=== PATIENT | male | born 1985 | race Caucasian/White ===

== ENCOUNTER 2022-06-25 07:23 | Emergency (ER) | payer MEDICAID ==
[~2022-06-25] VITALS: Ht 185.5 cm; Wt 140.6 kg
--- NOTE | 2022-06-25 07:41 | ED Cardiac General ---
History of Present Illness General Chief Complaint: Cardiac/General Problems Stated Complaint: RAPID HEART RATE / CHEST PAIN Source: patient Exam Limitations: no limitations History of Present Illness Date Seen by Provider: Jun 25, 2022 Time Seen by Provider: 07:26 Initial Comments Francia is a 36-year-old otherwise healthy individual who presents to the emergency room with a chief complaint of rapid heartbeat/palpitations and chest tightness. He states he woke up with the symptoms about 30 minutes prior to arrival. He complains of some nausea and a little shortness of breath. He is very flat in his affect. No distress whatsoever. No recent illnesses such as fevers, cough, congestion. He is not a smoker. He denies use of energy drinks or stimulants. He denies illicit drugs. He has had this episode twice before, once in January, he was treated in [facility]. He was not discharged on any medications. He states he had a recurrence in February but did not seek medical treatment. Currently rate is in the 140s. Blood pressure is 130 systolic. Oxygenation is good. EKG reveals atrial fibrillation with rapid ventricular response. He will be given a fluid bolus to start. All other review of systems reviewed and negative except as stated. 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: No ASA po BABY FORMULA WORKER: No Associated Systoms: Nausea/Vomiting, Other ("chills") Allergies and Home Medications Allergies Coded Allergies: erythromycin base (Verified Allergy, Unknown, 06/25/22) Patient Home Medication List Home Medication List Reviewed: Yes Apixaban (Eliquis) 5 Mg Tablet, 5 MG PO BID Prescribed by: FLAKO LEWIS on 06/25/22937 Diltiazem HCl (Cardizem Cd) 120 Mg Cap.er.24h, 120 MG PO DAILY Prescribed by: FLAKO LEWIS on 06/25/22937 Review of Systems Review of Systems Constitutional: see HPI, chills EENTM: No Symptoms Reported Respiratory: No Symptoms Reported Cardiovascular: Irregular Heart Rate, Palpitations Gastrointestinal: Nausea Genitourinary: No Symptoms Reported Musculoskeletal: no symptoms reported Skin: no symptoms reported Psychiatric/Neurological: No Symptoms Reported Endocrine: No Symptoms Reported All Other Systems Reviewed Negative Unless Noted: Yes Physical Exam Vital Signs Vital Signs - First Documented 06/25/22 07:29 Temp 36.2 Pulse 151 Resp 14 B/P (MAP) 149/102 (118) Pulse Ox 95 O2 Delivery Room Air Capillary Refill : Height, Weight, BMI Height: '" Weight: lbs. oz. kg; BMI Method: General Appearance: No Apparent Distress, WD/WN HEENT: PERRL/EOMI Neck: Normal Inspection Respiratory: Lungs Clear, Normal Breath Sounds, No Accessory Muscle Use, No Respiratory Distress Cardiovascular: Irregularly Irregular, Tachycardia (140's) Gastrointestinal: Non Tender, Soft Extremity: Normal Capillary Refill, No Calf Tenderness, Swelling (Some swelling noted to the left lower extremity. Nonpitting. He has a contusion to the left medial calf that is not erythematous or overtly tender. 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 II- XII Norm as Tested, Other (Flat affect) Skin: Normal Color, Warm/Dry Progress/Results/Core Measures Results/Orders Lab Results Laboratory Tests Test 06/25/22 07:35 06/25/22 07:42 Range/Units White Blood Count 6.3 4.3-11.0 10^3/uL Red Blood Count 5.51 4.30-5.52 10^6/uL Hemoglobin 15.7 13.3-17.7 g/dL Hematocrit 49 40-54 % Mean Corpuscular Volume 90 80-99 fL Mean Corpuscular Hemoglobin 29 25-34 pg Mean Corpuscular Hemoglobin Concent 32 32-36 g/dL Red Cell Distribution Width 12.6 10.0-14.5 % Platelet Count 163 130-400 10^3/uL Mean Platelet Volume 10.3 9.0-12.2 fL Immature Granulocyte % (Auto) 0 % Neutrophils (%) (Auto) 59 42-75 % Lymphocytes (%) (Auto) 29 12-44 % Monocytes (%) (Auto) 7 0-12 % Eosinophils (%) (Auto) 4 0-10 % Basophils (%) (Auto) 1 0-10 % Neutrophils # (Auto) 3.7 1.8-7.8 10^3/uL Lymphocytes # (Auto) 1.8 1.0-4.0 10^3/uL Monocytes # (Auto) 0.5 0.0-1.0 10^3/uL Eosinophils # (Auto) 0.3 0.0-0.3 10^3/uL Basophils # (Auto) 0.0 0.0-0.1 10^3/uL Immature Granulocyte # (Auto) 0.0 0.0-0.1 10^3/uL Prothrombin Time 14.6 12.2-14.7 SEC INR Comment 1.1 0.8-1.4 Activated Partial Thromboplast Time 36 H 24-35 SEC Sodium Level 141 135-145 MMOL/L Potassium Level 3.6 3.6-5.0 MMOL/L Chloride Level 106 98-107 MMOL/L Carbon Dioxide Level 24 21-32 MMOL/L Anion Gap 11 5-14 MMOL/L Blood Urea Nitrogen 15 7-18 MG/DL Creatinine 1.13 0.60-1.30 MG/DL Estimat Glomerular Filtration Rate 86 BUN/Creatinine Ratio 13 Glucose Level 97 70-105 MG/DL Calcium Level 9.1 8.5-10.1 MG/DL Corrected Calcium 8.8 8.5-10.1 MG/DL Magnesium Level 2.1 1.6-2.4 MG/DL Total Bilirubin 0.6 0.1-1.0 MG/DL Aspartate Amino Transf (AST/SGOT) 19 5-34 U/L Alanine Aminotransferase (ALT/SGPT) 23 0-55 U/L Alkaline Phosphatase 69 40-136 U/L Myoglobin 59.5 10.0-92.0 NG/ML Troponin I < 0.028 <0.028 NG/ML Total Protein 7.5 6.4-8.2 GM/DL Albumin 4.4 3.2-4.5 GM/DL Urine Opiates Screen NEGATIVE NEGATIVE Urine Oxycodone Screen NEGATIVE NEGATIVE Urine Methadone Screen NEGATIVE NEGATIVE Urine Propoxyphene Screen NEGATIVE NEGATIVE Urine Barbiturates Screen NEGATIVE NEGATIVE Ur Tricyclic Antidepressants Screen NEGATIVE NEGATIVE Urine Phencyclidine Screen NEGATIVE NEGATIVE Urine Amphetamines Screen NEGATIVE NEGATIVE Urine Methamphetamines Screen NEGATIVE NEGATIVE Urine Benzodiazepines Screen NEGATIVE NEGATIVE Urine Cocaine Screen NEGATIVE NEGATIVE Urine Cannabinoids Screen NEGATIVE NEGATIVE My Orders Orders - FLAKO LEWSI MD Ekg Tracing (06/25/22 07:30) Cbc With Automated Diff (06/25/22 07:41) Magnesium (06/25/22 07:41) Chest 1 View, Ap/Pa Only (06/25/22 07:41) Ekg Tracing (06/25/22 07:41) Comprehensive Metabolic Panel (06/25/22 07:41) Myoglobin Serum (06/25/22 07:41) Protime With Inr (06/25/22 07:41) Partial Thromboplastin Time (06/25/22 07:41) O2 (06/25/22 07:41) Monitor-Rhythm Ecg Trace Only (06/25/22 07:41) Lipid Panel (06/26/22 06:00) Ed Iv/Invasive Line Start (06/25/22 07:41) Troponin I Hugo (06/25/22 07:41) Drug Screen Stat (Urine) (06/25/22 07:41) Ns Iv 1000 Ml (Sodium Chloride 0.9%) (06/25/22 07:45) Diltiazem Injection (Cardizem Injection) (06/25/22 08:45) Ns Iv 1000 Ml (Sodium Chloride 0.9%) (06/25/22 08:45) Ekg Tracing (06/25/22 09:19) Apixaban Tablet (Eliquis Tablet) (06/25/22 09:45) Diltiazem Cd 24 Hr Capsule (Cardizem Cd (06/25/22 09:45) Diltiazem Injection (Cardizem Injection) (06/25/22 10:30) Diltiazem Drip Pre-Mix (Cardizem Drip Pr (06/25/22 11:15) Ed Admission (Communication) (06/25/22 11:41) Medications Given in ED Current Medications Medications Dose Ordered Sig/Paty Route Start Time Stop Time Status Last Admin Dose Admin Apixaban 5 mg ONCE ONCE PO 06/25/22 09:45 06/25/22 09:46 DC 06/25/22 09:52 5 MG Diltiazem HCl 10 mg ONCE ONCE IVP 06/25/22 10:30 06/25/22 10:31 DC 06/25/22 11:05 10 MG Diltiazem HCl 20 mg ONCE ONCE IVP 06/25/22 08:45 06/25/22 08:46 DC 06/25/22 08:58 20 MG Diltiazem HCl 120 mg ONCE ONCE PO 06/25/22 09:45 06/25/22 09:46 DC 10/30/22 09:52 120 MG Vital Signs/I&O 06/25/22 06/25/22 06/25/22 07:29 08:58 11:05 Temp 36.2 Pulse 151 141 141 Resp 14 B/P (MAP) 149/102 (118) 109/62 137/108 Pulse Ox 95 O2 Delivery Room Air Progress Progress Note #1: Time: 09:33 Progress Note Patient is rate controlled in the upper 80s low 90s. Blood pressure is good. Labs have been reviewed and are all within normal limits. Chest x-ray is unremarkable. Case was discussed with Dr. Odonnell who recommends Cardizem CD 120 mg now and then daily. He also recommends anticoagulation on Eliquis 5 mg twice daily. He will see the patient in 1 month. All of this has been communicated to the patient. He has no objective findings of acute coronary syndrome. He is not in pulmonary edema. No evidence of infectious pro cess/sepsis. He is not intoxicated. Progress Note #2: Time: 11:16 Progress Note Patient given an extra dose of IV Cardizem at 10 mg. His rate had climbed back up into the 120s 130s rapid ventricular response. Shortly after push patient increased to 160s. Discussed with Dr. Odonnell. We will put on cardiac stepdown unit on Cardizem drip. He will periodically dropped down into the 70s 80s but as soon as he gets up and moves around he jumped right back up to the 150s to 170s. Progress Note #3: Time: 11:46 Progress Note Went into discussed with patient admission status, he had converted from A. fib RVR in the 170s to normal sinus rhythm in the 60s and 70s. I did have him stand up to see what his heart rate and rhythm would do. He jumped up to 100 but stayed sinus tachycardia. He is asymptomatic. Will discharge to home as previously planned. Initial ECG Impression Date: Jun 25, 2022 Initial ECG Impression Time: 07:31 Initial ECG Rate: 142 Initial ECG Rhythm: A Fib/Flutter Initial ECG Impression: Atrial Fibrillation w/RVR EKG : EKG Time: : Rate: 98 Rhythm: A Fib/Flutter ECG Comparisson: Changed ECG Impression: Atrial Fibrillation Diagnostic Imaging Diagonstic Imaging: Xray Plain Films/CT/US/NM/MRI: chest Comments [facility]. [place], [place] NAME: FRANCIA REYES [facility] REC#: [id number] PT STATUS: REG ER : 1985 PHYSICIAN: FLAKO LEWIS MD ADMIT DATE: 06/25/22/ER Draft Date of Exam:06/25/22 CHEST 1 VIEW, AP/PA ONLY INDICATION: Chest pain. TECHNIQUE: Single view chest 8:03 AM. CORRELATION STUDY: None FINDINGS: Heart size is borderline enlarged. Vasculature overall within normal limits. The lungs are clear with no consolidating infiltrate. There is no significant effusion or pneumothorax. IMPRESSION: 1. Borderline heart size without failure. Dictated on workstation # [id number] Dict: 06/25/22817 Trans: 06/25/22818 [facility] [id number] Interpreted by: RIKI ABBOTT DO Electronically signed by: Critical Care Note Critical Care Start Time: 07:26 Stop Time: 11:15 Total Time (minutes) 1 hour critical care time in the evaluation and management of this patient with atrial fibrillation with rapid ventricular response. Time includes initial evaluation and management, review and interpretation of labs, EKG and x-ray. Management with Cardizem IV push x2 as well as oral Cardizem and now initiation of Cardizem drip. Time also includes discussion with cardiology. Departure Communication (Admissions) Time/Spoke to Admitting Phy: 11:40 Dr Jimenez Time/Spoke to Consulting Phy: 11:[address] Odonnell Impression Primary Impression: Atrial fibrillation with rapid ventricular response Disposition: ADMITTED INPATIENT Condition: Stable Admissions Decision to Admit Reason: Admit from ER (General) Decision to Admit/Date: Jun 25, 2022 Time/Decision to Admit Time: 11:37 Departure-Patient Inst. Decision time for Depature: 09:35 Referrals: FRANCIA ODONNELL JR, MD Patient Instructions: Atrial Fibrillation and Atrial Flutter ED Add. Discharge Instructions: Drink plenty of fluids to stay well-hydrated. Avoid caffeine, cold medications that are stimulants with phenylephrine. Watch your diet, avoid excessive salt intake. We have started you on Cardizem CD 120 mg daily. Please take this medication every day to control how fast your heart beats. You also need to be on a blood thinner. I have prescribed Eliquis. Take 5 mg twice daily with food. Do not miss a dose of this. This medication will help keep your blood thin to avoid developing blood clots in your heart that can travel to your brain and cause a stroke. Return to the emergency department for any worsening symptoms of palpitations, shortness of breath, chest pain or any other emergent concerning symptoms. Please call Dr. Odonnell, staffing assistant to schedule an appointment in 1 month. Scripts Diltiazem HCl (Cardizem Cd) 120 Mg Cap.er.24h 120 MG PO DAILY for 30 Days, #30 CAP Prov: FLAKO LEWIS MD 06/25/22 Apixaban (Eliquis) 5 Mg Tablet 5 MG PO BID, #60 TAB Prov: FLAKO LEWIS MD 06/25/22 Copy Copies To 1: FRANCIA ODONNELL JR, MD CORNELIUS, KATHRYN M MD Jun 25, 2022 07:41
[2022-06-25] MEDS ORDERED: NS IV 1000 ML 1,000 ML IV SCH ×2 (07:45→08:45)
[2022-06-25 08:02] LABS: ALBUMIN 4.4 GM/DL (3.2-4.5); POTASSIUM 3.6 MMOL/L (3.6-5.0)
[2022-06-25 08:03] LABS: BASOPHILS % (AUTO) 1 % (0-10); EOSINOPHILS # (AUTO) 0.3 10^3/uL (0.0-0.3); EOSINOPHILS % (AUTO) 4 % (0-10); HEMATOCRIT 49 % (40-54); HEMOGLOBIN 15.7 g/dL (13.3-17.7); LYMPHOCYTES # (AUTO) 1.8 10^3/uL (1.0-4.0); LYMPHOCYTES % (AUTO) 29 % (12-44); MEAN CORPUSCULAR HEMOGLOBIN 29 pg (25-34); MEAN CORPUSCULAR HGB CONC 32 g/dL (32-36); MEAN CORPUSCULAR VOLUME 90 fL (80-99); MEAN PLATELET VOLUME 10.3 fL (9.0-12.2); MONOCYTES # (AUTO) 0.5 10^3/uL (0.0-1.0); MONOCYTES % (AUTO) 7 % (0-12); NEUTROPHILS # (AUTO) 3.7 10^3/uL (1.8-7.8); NEUTROPHILS % (AUTO) 59 % (42-75); PLATELET COUNT 163 10^3/uL (130-400); WHITE BLOOD COUNT 6.3 10^3/uL (4.3-11.0)
[2022-06-25 08:04] LABS: CALCIUM 9.1 MG/DL (8.5-10.1)
[2022-06-25 08:05] LABS: TOTAL PROTEIN 7.5 GM/DL (6.4-8.2)
[2022-06-25 08:07] LABS: AMPHETAMINE SCREEN, URINE NEGATIVE (NEGATIVE); BARBITURATE SCREEN URINE NEGATIVE (NEGATIVE); BENZODIAZEPINES SCREEN URINE NEGATIVE (NEGATIVE); CANNABINOID SCREEN, URINE NEGATIVE (NEGATIVE); COCAINE SCREEN URINE NEGATIVE (NEGATIVE); METHADONE STAT NEGATIVE (NEGATIVE); OPIATE SCREEN URINE NEGATIVE (NEGATIVE); OXYCODONE STAT NEGATIVE (NEGATIVE); PROPOXYPHENE STAT NEGATIVE (NEGATIVE); TRICYCLIC ANTIDEPRESSANTS SCRE NEGATIVE (NEGATIVE)
[2022-06-25 08:07] LABS: BILIRUBIN,TOTAL 0.6 MG/DL (0.1-1.0)
[2022-06-25 08:08] LABS: CREATININE SERUM 1.13 MG/DL (0.60-1.30); INR 1.1 (0.8-1.4); PROTHROMBIN TIME PATIENT 14.6 SEC (12.2-14.7)
[2022-06-25 08:11] LABS: MAGNESIUM 2.1 MG/DL (1.6-2.4)
--- NOTE | 2022-06-25 08:19 | Diagnostic Imaging Report ---
INDICATION: Chest pain. TECHNIQUE: Single view chest 8:03 AM. CORRELATION STUDY: None FINDINGS: Heart size is borderline enlarged. Vasculature overall within normal limits. The lungs are clear with no consolidating infiltrate. There is no significant effusion or pneumothorax. IMPRESSION: 1. Borderline heart size without failure. Dictated by: Dictated on workstation # [id number]
[2022-06-25] MEDS ORDERED: DILT120C82 PO (09:38)
[2022-06-25] MEDS ORDERED: APIX5TAB PO (09:38)
[2022-06-25] MEDS ORDERED: APIXABAN 5 MG (ELIQUIS) TABLET PO ONE (09:45)
[2022-06-25] MEDS ORDERED: dilTIAZem120 MG (CARDIZEM CD) CAP PO ONE (09:45)
[2022-06-25] MEDS ORDERED: dilTIAZem DRIP PRE-MIX 125 ML IV SCH (11:15)
--- NOTE | 2022-06-25 12:03 | Tele-ICU Consult ---
History of Present Illness History of Present Illness Date Seen by Provider: Jun 25, 2022 Time Seen by Provider: 11:45 Date of Admission This virtual visit was conducted using real time audio/video. Thank you for asking us to see this patient for afib/RVR Recent events: nDeveloped chest discomfort and afib PMH:2 previous afib episodes SH: smoking history: N FH: Non-contributory ROS: as in HPI. PE: VSS. O2 sat 95% on RA HEENT: No obvious masses, adenopathy or JVD. Chest: clear to auscultation. CV: Irreg. S1 S2 No murmur or added sounds. Abd: Non-tender. Bowel sounds Y. : Unremarkable. [place] N. 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 No obvious focal findings. Extremities: edema. Capillary refill < 3 seconds. Skin: unremarkable. Results: Labs normal, tox screen negative CXR: Clear. Available chart/ vitals / labs / images reviewed. Video assessment done using teleICU camera, rest of exam as per RN. A/P: Critical Care: critically ill patient. 3rd occurrence of PAF/RVR. Cont. Cardizem, IVF, Eliquis Discussed with SERAFIN Forte. Asked RN to reach out to eICU if any questions or concerns later. Time spent with patient/coordination of care with other health professionals (mins): 25 Allergies and Home Medications Allergies Coded Allergies: erythromycin base (Verified Allergy, Unknown, 06/25/22) Home Medications Apixaban 5 Mg Tablet, 5 MG PO BID Prescribed by: FLAKO LEWIS on 06/25/22 09 Diltiazem HCl 120 Mg Cap.er.24h, 120 MG PO DAILY Prescribed by: FLAKO LEWIS on 06/25/22 09 Past Medical/Social/Family Hx Patient Social History Tobacco Use?: No Use of E-Cig and/or Vaping dev: No Substance use?: No Alcohol Use?: No Pt stated abuse/neglect: No Immunizations Up To Date Tetanus Booster (TDap): Unknown Current Status Advance Directives: No Primary Language: Greenlandic Preferred Spoken Language: Greenlandic Review of Systems Constitutional: no symptoms reported Focused Exam Height, Weight, BMI Height: '" Weight: lbs. oz. kg; 40.00 BMI Method: Peripheral Pulses: 2+ Dorsalis Pedis (R), 2+ Left Dors-Pedis (L) Skin: normal color Exam Exam Patient acknowledged, consented, and participated in this virtual visit which was conducted using real time audio/video Vital Signs Date Time Temp Pulse Resp B/P (MAP) Pulse Ox O2 Delivery O2 Flow Rate FiO2 06/25/22 11:05 141 137/108 06/25/22 08:58 141 109/62 06/25/22 07:29 36.2 151 14 149/102 (118) 95 Room Air Height & Weight Height: '" Weight: lbs. oz. kg; 40.00 BMI Method: General Appearance: No Apparent Distress, WD/WN HEENT: PERRL/EOMI Neck: Normal Inspection Respiratory: Lungs Clear, Normal Breath Sounds, No Accessory Muscle Use, No Respiratory Distress Cardiovascular: Irregularly Irregular, Tachycardia (140's) Capillary Refill: Less Than 3 Seconds Peripheral Pulses: 2+ Dorsalis Pedis (R), 2+ Left Dors-Pedis (L) (See free text) Extremity: Normal Capillary Refill, No Calf Tenderness, Swelling (Some swelling noted to the left lower extremity. Nonpitting. He has a contusion to the left medial calf that is not erythematous or overtly tender. 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 Critical Care: Critically Ill Patient LAVERNE MONTEJO MD Jun 25, 2022 12:03
[2022-06-25 12:10] VITALS: BP 138/96
== END 2022-06-25 12:10 | disposition other institution (70) ==
LOC: EDUNIT# 07:23 → ER 07:24 → ICU 11:42 → UNDOADMOB 11:42
DX: I48.20 Chronic atrial fibrillation, unspecified (principal)
CPT/HCPCS: 36415; 71045; 80053; 80306; 83735; 83874; 84484; 85025; 85610; 85730; 93005; 93041

== ENCOUNTER → 2022-07-17 | Outpatient (CLI) | payer MEDICAID ==
[~2022-07-17] MED LIST: APIX5TAB PO; DILT120C82 PO
== END ==
LOC: CARD 08:24
PROVIDERS: ATTEND Internal Medicine Cardiovascular Disease
DX: I51.7 Cardiomegaly (principal)
CPT/HCPCS: 93306

== ENCOUNTER 2022-08-13 20:42 | Emergency (ER) | payer MEDICAID ==
[~2022-08-13] VITALS: Ht 183 cm; Wt 140.6 kg
[2022-08-13 21:02] LABS: BASOPHILS # (AUTO) 0.1 10^3/uL (0.0-0.1); BASOPHILS % (AUTO) 1 % (0-10); EOSINOPHILS # (AUTO) 0.2 10^3/uL (0.0-0.3); EOSINOPHILS % (AUTO) 4 % (0-10); HEMATOCRIT 44 % (40-54); HEMOGLOBIN 14.3 g/dL (13.3-17.7); LYMPHOCYTES # (AUTO) 1.7 10^3/uL (1.0-4.0); LYMPHOCYTES % (AUTO) 27 % (12-44); MEAN CORPUSCULAR HEMOGLOBIN 29 pg (25-34); MEAN CORPUSCULAR HGB CONC 33 g/dL (32-36); MEAN CORPUSCULAR VOLUME 87 fL (80-99); MEAN PLATELET VOLUME 9.7 fL (9.0-12.2); MONOCYTES # (AUTO) 0.5 10^3/uL (0.0-1.0); MONOCYTES % (AUTO) 8 % (0-12); NEUTROPHILS # (AUTO) 3.9 10^3/uL (1.8-7.8); NEUTROPHILS % (AUTO) 61 % (42-75); PLATELET COUNT 177 10^3/uL (130-400); WHITE BLOOD COUNT 6.4 10^3/uL (4.3-11.0)
[2022-08-13 21:14] LABS: BILIRUBIN,URINE NEGATIVE (NEGATIVE); CLARITY,URINE CLEAR; COLOR,URINE YELLOW; GLUCOSE, URINE (UA) NEGATIVE (NEGATIVE); KETONES,URINE NEGATIVE (NEGATIVE); LEUKOCYTE ESTERASE ,URINE NEGATIVE (NEGATIVE); NITRITE,URINE NEGATIVE (NEGATIVE); PH,URINE 5.5 (5-9); PROTEIN,URINE NEGATIVE (NEGATIVE)
--- NOTE | 2022-08-13 21:18 | Diagnostic Imaging Report ---
CHEST 1 VIEW, AP/PA ONLY Indication: Stroke symptoms, chest pain Comparison: 06/25/2022 Findings: No focal airspace disease in the visualized lungs. No pleural effusion or pneumothorax. Normal cardiomediastinal silhouette. Impression: 1. No acute cardiopulmonary process by portable radiography. Dictated by: Dictated on workstation # [id number]
[2022-08-13 21:19] LABS: ALBUMIN 4.2 GM/DL (3.2-4.5); CHLORIDE 106 MMOL/L (98-107); POTASSIUM 3.7 MMOL/L (3.6-5.0); SODIUM 140 MMOL/L (135-145)
[2022-08-13 21:20] LABS: CALCIUM 8.9 MG/DL (8.5-10.1)
[2022-08-13 21:21] LABS: GLUCOSE 90 MG/DL (70-105)
[2022-08-13 21:22] LABS: TOTAL PROTEIN 6.9 GM/DL (6.4-8.2)
[2022-08-13 21:22] LABS: BACTERIA,URINE FEW /HPF; RBC,URINE RARE /HPF
--- NOTE | 2022-08-13 21:22 | ED Neurological Problem ---
General Chief Complaint: Neuro-Stroke Like Symptoms Stated Complaint: RIGHT SIDE FACIAL DROOPING/SLURRED SPEECH Nursing Triage Note: c/o right sided facial drooping since sunday am. reports hx afib. states possible fever, right ear pain since sunday. denies other complaints. Source: patient, spouse Exam Limitations: other (BOTH PT AND ARE VERY LIMITED HISTORIANS ABOUT PMH) Allergies and Home Medications Allergies Coded Allergies: erythromycin base (Verified Allergy, Unknown, 06/25/22) Patient Home Medication List Apixaban (Eliquis) 5 Mg Tablet, 5 MG PO BID Prescribed by: FLAKO LEWIS on 06/25/22937 Diltiazem HCl (Cardizem Cd) 120 Mg Cap.er.24h, 120 MG PO DAILY Prescribed by: FLAKO LEWIS on 06/25/22937 Past Nvypfoo-Hgguyk-Skwhzl Hx Patient Social History Tobacco Use?: No Substance use?: No Alcohol Use?: Yes Alcohol Frequency: Once in a while Pt feels they are or have been: No Immunizations Up To Date First/Initial COVID19 Vaccinat: x2 Past Medical History Surgery/Hospitalization HX: afib Physical Exam Vital Signs Vital Signs - First Documented 08/13/22 20:48 Temp 35.8 Pulse 66 Resp 16 B/P (MAP) 158/108 (125) Pulse Ox 98 O2 Delivery Room Air Capillary Refill : Less Than 3 Seconds Height, Weight, BMI Height: '" Weight: lbs. oz. kg; 41.00 BMI Method: Stroke NIH Stroke Scale Assessment Level of Consciousness: 0=Alert (0), Level of Consciousness-Questions: 0=Answers both month/age (0), LOC Commands: 0=Performs both tasks (0), Visual Winter: 0=No visual loss (0), Facial Movement (Facial Paresis): 2=Partial paralysis (2), Motor Function-Arms Right: 0=No drift (0), Motor Function-Arms Left: 0=No drift (0), Motor Function-Legs Right: 0=No drift (0), Motor Function-Legs Left: 0=No drift (0), Limb Ataxia: 0=Absent (0), Sensory: 0=Normal:no loss (0), Best Language: 0=No aphasia (0), Dysarthria: 0=Normal (0), Extinction & Inattention: 0=No abnormality (0), Total: Progress/Results/Core Measures Results/Orders Lab Results Laboratory Tests Test 08/13/22 20:55 08/13/22 21:01 08/13/22 21:02 08/13/22 21:03 Range/Units White Blood Count 6.4 4.3-11.0 10^3/uL Red Blood Count 5.00 4.30-5.52 10^6/uL Hemoglobin 14.3 13.3-17.7 g/dL Hematocrit 44 40-54 % Mean Corpuscular Volume 87 80-99 fL Mean Corpuscular Hemoglobin 29 25-34 pg Mean Corpuscular Hemoglobin Concent 33 32-36 g/dL Red Cell Distribution Width 12.4 10.0-14.5 % Platelet Count 177 130-400 10^3/uL Mean Platelet Volume 9.7 9.0-12.2 fL Immature Granulocyte % (Auto) 0 % Neutrophils (%) (Auto) 61 42-75 % Lymphocytes (%) (Auto) 27 12-44 % Monocytes (%) (Auto) 8 0-12 % Eosinophils (%) (Auto) 4 0-10 % Basophils (%) (Auto) 1 0-10 % Neutrophils # (Auto) 3.9 1.8-7.8 10^3/uL Lymphocytes # (Auto) 1.7 1.0-4.0 10^3/uL Monocytes # (Auto) 0.5 0.0-1.0 10^3/uL Eosinophils # (Auto) 0.2 0.0-0.3 10^3/uL Basophils # (Auto) 0.1 0.0-0.1 10^3/uL Immature Granulocyte # (Auto) 0.0 0.0-0.1 10^3/uL Prothrombin Time 15.1 H 12.2-14.7 SEC INR Comment 1.1 0.8-1.4 Activated Partial Thromboplast Time 37 H 24-35 SEC D-Dimer <= 0.27 0.00-0.49 UG/ML Sodium Level 140 135-145 MMOL/L Potassium Level 3.7 3.6-5.0 MMOL/L Chloride Level 106 98-107 MMOL/L Carbon Dioxide Level 25 21-32 MMOL/L Anion Gap 9 5-14 MMOL/L Blood Urea Nitrogen 18 7-18 MG/DL Creatinine 1.00 0.60-1.30 MG/DL Estimat Glomerular Filtration Rate 100 BUN/Creatinine Ratio 18 Glucose Level 90 70-105 MG/DL Calcium Level 8.9 8.5-10.1 MG/DL Corrected Calcium 8.7 8.5-10.1 MG/DL Total Bilirubin 0.6 0.1-1.0 MG/DL Aspartate Amino Transf (AST/SGOT) 20 5-34 U/L Alanine Aminotransferase (ALT/SGPT) 21 0-55 U/L Alkaline Phosphatase 54 40-136 U/L Troponin I < 0.028 <0.028 NG/ML C-Reactive Protein High Sensitivity 0.34 0.00-0.50 MG/DL Total Protein 6.9 6.4-8.2 GM/DL Albumin 4.2 3.2-4.5 GM/DL Procalcitonin 0.02 <0.10 NG/ML Glucometer 98 70-110 MG/DL Influenza Type A (RT-PCR) Not Detected Not Detecte Influenza Type B (RT-PCR) Not Detected Not Detecte SARS-CoV-2 RNA (RT-PCR) Not Detected Not Detecte Erythrocyte Sedimentation Rate 4 0-15 MM/HR Test 08/13/22 21:09 Range/Units Urine Color YELLOW Urine Clarity CLEAR Urine pH 5.5 5-9 Urine Specific [place] >=1.030 1.016-1.022 Urine Protein NEGATIVE NEGATIVE Urine Glucose (UA) NEGATIVE NEGATIVE Urine Ketones NEGATIVE NEGATIVE Urine Nitrite NEGATIVE NEGATIVE Urine Bilirubin NEGATIVE NEGATIVE Urine Urobilinogen 0.2 < = 1.0 MG/DL Urine Leukocyte Esterase NEGATIVE NEGATIVE Urine RBC (Auto) TRACE-I H NEGATIVE Urine RBC RARE /HPF Urine WBC NONE /HPF Urine Squamous Epithelial Cells 2-5 /HPF Urine Crystals NONE /LPF Urine Bacteria FEW H /HPF Urine Casts NONE /LPF Urine Mucus MODERATE H /LPF Urine Culture Indicated YES My Orders Orders - CIARA SHEPPARD DO Cbc With Automated Diff (08/13/22 20:52) Protime With Inr (08/13/22 20:52) Partial Thromboplastin Time (08/13/22 20:52) Comprehensive Metabolic Panel (08/13/22 20:52) Fibrin Degradation Products (08/13/22 20:52) Troponin I [place] (08/13/22 20:52) Ua Culture If Indicated (08/13/22 20:52) Chest 1 View, Ap/Pa Only (08/13/22 20:52) Ekg Tracing (08/13/22 20:52) Nothing By Mouth (08/14/22 Breakfast) Accucheck Stat ONCE (08/13/22 20:52) Ed Iv/Invasive Line Start (08/13/22 20:52) Ed Iv/Invasive Line Start (08/13/22 20:52) Vital Signs Stroke Patient Q15M (08/13/22 20:52) Ct Head Wo-R/O Stroke (08/13/22 20:52) O2 (08/13/22 20:52) Intake & Output 06,14,22 (08/13/22 20:52) Monitor-Rhythm Ecg Trace Only (08/13/22 20:52) Dysphagia Screening Tool Q10MX1 (08/13/22 20:52) Lipid Panel (08/14/22 06:00) Procalcitonin (Pct) (08/13/22 21:03) Hs C Reactive Protein (08/13/22 21:03) Erythrocyte Sedimentation Rate (08/13/22 21:03) Covid 19 Inhouse Test (08/13/22 21:03) Influenza A And B By Pcr (08/13/22 21:03) Isolation Central Supply Req (08/13/22 21:03) Urine Culture (08/13/22 21:09) Ct Head Perfusion W/ Contrast (08/13/22 21:39) Ct Angio Head/Neck (08/13/22 21:39) Iohexol Injection (Omnipaque 350 Mg/Ml 1 (08/13/22 22:00) Received Contrast (Hold Metformin- Contr (08/13/22 22:00) Ns (Ivpb) (Sodium Chloride 0.9% Ivpb Bag (08/13/22 22:00) Iohexol Injection (Omnipaque 350 Mg/Ml 1 (08/13/22 22:00) Received Contrast (Hold Metformin- Contr (08/13/22 22:00) Ns (Ivpb) (Sodium Chloride 0.9% Ivpb Bag (08/13/22 22:00) Medications Given in ED Current Medications Medications Dose Ordered Sig/Paty Route Start Time Stop Time Status Last Admin Dose Admin Iohexol 100 ml ONCE ONCE IV 08/13/22 22:00 08/13/22 22:01 DC 08/13/22 21:52 45 ML Iohexol 100 ml ONCE ONCE IV 08/13/22 22:00 08/13/22 22:01 DC 08/13/22 21:52 75 ML Sodium Chloride 100 ml ONCE ONCE IV 08/13/22 22:00 08/13/22 22:01 DC 08/13/22 21:52 80 ML Sodium Chloride 100 ml ONCE ONCE IV 08/13/22 22:00 08/13/22 22:01 DC 08/13/22 21:52 80 ML Vital Signs/I&O 08/13/22 20:48 Temp 35.8 Pulse 66 Resp 16 B/P (MAP) 158/108 (125) Pulse Ox 98 O2 Delivery Room Air Blood Pressure Mean: 125 FSBG Bedside Testing Finger Stick Blood Glucose: 98 Diagnostic Imaging Comments CXR--PER RADIOLOGIST REPORT AT 2120 Findings: No focal airspace disease in the visualized lungs. No pleural effusion or pneumothorax. Normal cardiomediastinal silhouette. Impression: 1. No acute cardiopulmonary process by portable radiography. CT HEAD--PER RADIOLOGIST REPORT AT 2138 COMPARISON: None available. FINDINGS: No intracranial hyperdense hemorrhage or space-occupying mass. No hydrocephalus or midline shift. Bruner-white matter differentiation is well-preserved. No hyperdense vessel sign. Basilar cisterns are widely patent. No skull fracture. Mucosal thickening in the ethmoid sinuses. Mucosal retention cyst in the left maxillary sinus. IMPRESSION: No acute intracranial hemorrhage or features of large territorial infarct. Reviewed: Reviewed by Me Departure Impression Primary Impression: RIGHT FACIAL DROOP--SUSPECTED MARIN'S PALSY Additional Impression: History of atrial fibrillation Disposition: HOME, SELF-CARE Condition: Stable Departure-Patient Inst. Decision time for Depature: 22:39 Referrals: [facility] Patient Instructions: Marin's Palsy (DC) Add. Discharge Instructions: HOME, REST LOTS OF CLEAR LIQUIDS USE ARTIFICIAL TEARS TO YOUR EYE SEVERAL TIMES A DAY OVER THE COUNTER MEDICATIONS FOR COUGH AND CONGESTION TYLENOL AND MOTRIN NEEDED FOR PAIN OR FEVER FOLLOW UP WITH [facility] IN 1-2 DAYS FOR FURTHER CARE All discharge instructions reviewed with patient and/or family. Voiced understanding. Scripts Prednisone (Prednisone) 20 Mg Tab 40 MG PO DAILY, #6 TAB 0 Refills Prov: CIARA SHEPPARD DO 08/13/22 Valacyclovir HCl (Valtrex) 1,000 Mg Tablet 1000 MG PO TIDAC, #30 TAB Prov: CIARA SHEPPARD DO 08/13/22 CIARA SHEPPARD DO Aug 13, 2022 21:22
[2022-08-13 21:23] LABS: BILIRUBIN,TOTAL 0.6 MG/DL (0.1-1.0); CARBON DIOXIDE 25 MMOL/L (21-32)
[2022-08-13 21:25] LABS: ALKALINE PHOSPHATASE 54 U/L (40-136); GFR ESTIMATED 100
[2022-08-13 21:26] LABS: BUN/CREATININE RATIO 18
[2022-08-13 21:28] LABS: ALANINE AMINOTRANSFERASE 21 U/L (0-55)
--- NOTE | 2022-08-13 21:34 | Diagnostic Imaging Report ---
PROCEDURE: CT head w/o r/o stroke. TECHNIQUE: Multiple contiguous axial images were obtained through the brain without the use of intravenous contrast. Auto Exposure Controls were utilized during the CT exam to meet ALARA standards for radiation dose reduction. INDICATION: Right-sided weakness, slurred speech and facial droop. COMPARISON: None available. FINDINGS: No intracranial hyperdense hemorrhage or space-occupying mass. No hydrocephalus or midline shift. Bruner-white matter differentiation is well-preserved. No hyperdense vessel sign. Basilar cisterns are widely patent. No skull fracture. Mucosal thickening in the ethmoid sinuses. Mucosal retention cyst in the left maxillary sinus. IMPRESSION: No acute intracranial hemorrhage or features of large territorial infarct. Dictated by: Dictated on workstation # [id number]
[2022-08-13 21:48] LABS: FIBRIN DEGRADATION PRODUCTS <= 0.27 UG/ML (0.00-0.49); INR 1.1 (0.8-1.4); PARTIAL THROMBOPLASTIN TIME 37 SEC (24-35); PROTHROMBIN TIME PATIENT 15.1 SEC (12.2-14.7)
[2022-08-13] MEDS ORDERED: NS 100 ML (IVPB) BAG IV ONE ×2 (22:00)
[2022-08-13] MEDS ORDERED: IOHEXOL 350 MG/ML 100 ML (OMNIPAQUE 350) VIAL IV ONE ×2 (22:00)
[2022-08-13] MEDS ORDERED: HOLD METFORMIN - RECEIVED CONTRAST 20 ML VIAL IV SCH ×2 (22:00)
--- NOTE | 2022-08-13 22:02 | Diagnostic Imaging Report ---
CT Head perfusion w/contrast INDICATION: Facial droop. COMPARISON: None available. TECHNIQUE: CT perfusion imaging of the head. FINDINGS: No motion is detected. The software correctly selected arterial and venous structures. There are no areas of diminished cerebral blood volume or cerebral blood perfusion. The mean transit time and time to maximal perfusion are not elevated. IMPRESSION: No features of ischemia by perfusion imaging. Dictated by: Dictated on workstation # [id number]
[2022-08-13] MEDS ORDERED: VALA10004 PO (22:41)
[2022-08-13] MEDS ORDERED: PRD20T PO (22:41)
[2022-08-13] MEDS ORDERED: predniSONE 20 MG TAB PO ONE (22:45)
[2022-08-13] MEDS ORDERED: VALACYCLOVIR 500 MG TAB (VALTREX) PO SCH (22:45)
[2022-08-13 22:54] VITALS: BP 164/90
--- NOTE | 2022-08-14 09:01 | Diagnostic Imaging Report ---
CLINICAL INDICATION: Patient with right-sided facial drooping since [place] AM. Patient reports atrial fibrillation, possible fever, and right ear pain since [place]. EXAMS: 1: Head CT with and without IV contrast. Auto Exposure Controls were utilized during the CT exam to meet ALARA standards for radiation dose reduction. 2: CT angiogram of the head and neck performed with 100 cc of Omnipaque 350 IV contrast. Sagittal and coronal MIP reformations were created for better visualization of vascular anatomy. CT angiogram was post-processed using RAPID LVO detection to include quantitative measurements of cerebral blood flow and automated results notification to the stroke and/or neurointerventional team. COMPARISON: Head CT without contrast dated 08/13/2022. FINDINGS: HEAD CT: Stable appearance of the head CT with no interval acute intracranial process. There is no abnormal IV contrast enhancement. There is no brain herniation or midline shift. There is no intracranial hemorrhage. There is no hydrocephalus. The remainder of this exam shows no significant interval change compared to the prior study of comparison. CT ANGIOGRAM: There is limited contrast within the neck vascular structures. Patient body habitus and streak artifact limit evaluation of the aortic arch and proximal great vessels. Three-vessel aortic arch is seen. The bilateral subclavian arteries and brachiocephalic arteries are patent. The bilateral common carotid arteries, bilateral ECA, and bilateral cervical ICA are patent. Petrous, cavernous, and supraclinoid ICA are patent. The LILIAN and distal branches are patent. The bilateral ACAs and distal branches are patent. The proximal cervical left vertebral artery is obscured by streak artifact. The bilateral cervical vertebral arteries are patent as visualized. The intradural vertebral arteries are patent. The left PICA is patent. Suspected right AICA/PICA. The basilar and superior cerebellar arteries are patent. The bilateral third grade teacher and distal branches are patent. The dural venous sinuses are patent. The visualized upper lung rao are clear. Neck soft tissue structures show no significant abnormality. Cervical spine shows no significant abnormality. IMPRESSION: 1: Stable CT scan of the brain with no interval acute intracranial process. 2: CT angiogram of the [place] and neck vascular structures shows no large vessel occlusion or significant stenosis. I agree with the [employer] report. Dictated by: Dictated on workstation # [id number]
== END 2022-08-13 22:58 | disposition home or self-care (01) ==
LOC: EDUNIT# 20:42 → ER 20:45
DX: R29.810 Facial weakness (principal); Z86.79 Personal history of other diseases of the circulatory system; Z20.822 Contact with and (suspected) exposure to COVID-19
CPT/HCPCS: 0042T; 70450; 70496; 70498; 71045; 80053; 81000; 82947; 84145; 84484; 85025; 85379; 85610; 85652; 85730; 86141; 87088; 87636; 93005; 93041; 99284; 36415

== ENCOUNTER 2022-09-01 20:22 | Outpatient (CLI) | payer MEDICAID ==
[~2022-09-01 20:22] MED LIST changes: +PRD20T PO; +VALA10004 PO
== END 2022-09-02 06:35 | disposition home or self-care (01) ==
LOC: SLEEP 20:22
PROVIDERS: ATTEND Nurse Practitioner Family
DX: G47.33 Obstructive sleep apnea (adult) (pediatric) (principal); G47.10 Hypersomnia, unspecified; G47.36 Sleep related hypoventilation in conditions classified elsewhere
CPT/HCPCS: 95810

== ENCOUNTER → 2022-09-15 | Outpatient (CLI) | payer MEDICAID | LOC: RAD 11:55 | PROVIDERS: ATTEND Internal Medicine Cardiovascular Disease | DX: G51.0 Bell's palsy (principal); Z53.8 Procedure and treatment not carried out for other reasons ==

== ENCOUNTER 2022-10-11 18:23 | Emergency (ER) | payer OTHER ==
[~2022-10-11] VITALS: Ht 182 cm; Wt 142.0 kg
[2022-10-11 18:48] LABS: BASOPHILS % (AUTO) 1 % (0-10); EOSINOPHILS # (AUTO) 0.2 10^3/uL (0.0-0.3); EOSINOPHILS % (AUTO) 3 % (0-10); HEMATOCRIT 47 % (40-54); HEMOGLOBIN 15.3 g/dL (13.3-17.7); LYMPHOCYTES # (AUTO) 1.8 10^3/uL (1.0-4.0); LYMPHOCYTES % (AUTO) 23 % (12-44); MEAN CORPUSCULAR HEMOGLOBIN 29 pg (25-34); MEAN CORPUSCULAR HGB CONC 33 g/dL (32-36); MEAN CORPUSCULAR VOLUME 87 fL (80-99); MEAN PLATELET VOLUME 10.3 fL (9.0-12.2); MONOCYTES # (AUTO) 0.5 10^3/uL (0.0-1.0); MONOCYTES % (AUTO) 6 % (0-12); NEUTROPHILS # (AUTO) 5.2 10^3/uL (1.8-7.8); NEUTROPHILS % (AUTO) 67 % (42-75); PLATELET COUNT 179 10^3/uL (130-400); WHITE BLOOD COUNT 7.8 10^3/uL (4.3-11.0)
--- NOTE | 2022-10-11 18:52 | ED General ---
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 SPACE SCIENCES DIRECTOR TOLD PT HE MAY HAVE BEEN EXPOSED. PT STATES FEELING NAUSEATED, MUNOZ, DIZZINESS.PT STATES IS TAKING A LITTLE LONGER TO ANSWER QUESTIONS THAN NORMAL Source of Information: Patient Exam Limitations: No Limitations History of Present Illness Date Seen by Provider: Oct 11, 2022 Time Seen by Provider: 18:39 Initial Comments 36-year-old male presents to the ED from the urgent care for carbon monoxide exposure. 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 States he was exposed for approximately 10 hours, from 7 AM to 5 PM. Speech is slowed and slurred. He states he was having a headache, but is better now. Reports shortness of air, nausea, dizziness, weakness. Denies chest pain, abdominal pain, vomiting, visual changes. Past medical history includes A-fib, currently on Cardizem. Allergies and Home Medications Allergies Coded Allergies: erythromycin base (Verified Allergy, Unknown, 06/25/22) Patient Home Medication List Home Medication List Reviewed: Yes Apixaban (Eliquis) 5 Mg Tablet, 5 MG PO BID Prescribed by: FLAKO LEWIS on 06/25/22 0938 Diltiazem HCl (Cardizem Cd) 120 Mg Cap.er.24h, 120 MG PO DAILY Prescribed by: FLAKO LEWIS on 06/25/22 0938 Prednisone (Prednisone) 20 Mg Tab, 40 MG PO DAILY Prescribed by: CIARA SHEPPARD on 08/13/222240 Valacyclovir HCl (Valtrex) 1,000 Mg Tablet, 1,000 MG PO TIDAC Prescribed by: CIARA SHEPPARD on 08/13/22 224 Review of Systems Review of Systems Constitutional: see HPI Past Cbdkflb-Siwhoq-Ygktdg Hx Patient Social History Tobacco Use?: No Substance use?: No Alcohol Use?: Yes Alcohol type: Beer Alcohol Frequency: Once in a while Pt feels they are or have been: No Immunizations Up To Date Influenza Vaccine Up-to-Date: No; Not Current First/Initial COVID19 Vaccinat: x2 Second COVID19 Vaccination Dimitri: x2 Third COVID19 Vaccination Date: x2 Past Medical History Surgery/Hospitalization HX: afib, Surgeries: No Respiratory: No Cardiac: Yes Atrial Fibrillation Neurological: No Genitourinary: No Gastrointestinal: No Musculoskeletal: No Endocrine: No HEENT: No Cancer: No Psychosocial: No Integumentary: No Blood Disorders: No Physical Exam Vital Signs Vital Signs - First Documented 10/11/22 10/11/22 18:30 18:35 Pulse 71 Resp 18 B/P (MAP) 149/94 (112) Pulse Ox 99 O2 Delivery OxyMask O2 Flow Rate 10.00 Capillary Refill : Less Than 3 Seconds Height, Weight, BMI Height: '" Weight: lbs. oz. kg; 42.00 BMI Method: General Appearance: No Apparent Distress, WD/WN Neck: Normal Inspection, Supple Respiratory: Lungs Clear, Normal Breath Sounds, No Accessory Muscle Use, No Respiratory Distress Cardiovascular: Regular Rate, Rhythm, No Edema, No Gallop, No JVD, No Murmur Extremity: Normal Inspection, Normal Range of Motion Neurologic/Psychiatric: Alert, Oriented x3, Other (Slowed speech) Skin: Normal Color, Warm/Dry Focused Exam Lactate Level 10/11/22 18:44: Lactic Acid Level 0.88 Lactic Acid Level Laboratory Tests Test 10/11/22 18:44 Lactic Acid Level 0.88 MMOL/L (0.50-2.00) Progress/Results/Core Measures Suspected Sepsis SIRS Temperature: Pulse: 71 Respiratory Rate: 18 Laboratory Tests 10/11/22 18:44: White Blood Count 7.8 Blood Pressure 149 /94 Mean: 112 10/11/22 18:44: Lactic Acid Level 0.88 Laboratory Tests 10/11/22 18:44: Creatinine 1.00, Platelet Count 179, Total Bilirubin 0.8 Results/Orders Lab Results Laboratory Tests Test 10/11/22 18:44 10/11/22 19:05 10/11/22 21:25 10/11/22 21:32 Range/Units White Blood Count 7.8 4.3-11.0 10^3/uL Red Blood Count 5.32 4.30-5.52 10^6/uL Hemoglobin 15.3 13.3-17.7 g/dL Hematocrit 47 40-54 % Mean Corpuscular Volume 87 80-99 fL Mean Corpuscular Hemoglobin 29 25-34 pg Mean Corpuscular Hemoglobin Concent 33 32-36 g/dL Red Cell Distribution Width 13.0 10.0-14.5 % Platelet Count 179 130-400 10^3/uL Mean Platelet Volume 10.3 9.0-12.2 fL Immature Granulocyte % (Auto) 0 % Neutrophils (%) (Auto) 67 42-75 % Lymphocytes (%) (Auto) 23 12-44 % Monocytes (%) (Auto) 6 0-12 % Eosinophils (%) (Auto) 3 0-10 % Basophils (%) (Auto) 1 0-10 % Neutrophils # (Auto) 5.2 1.8-7.8 10^3/uL Lymphocytes # (Auto) 1.8 1.0-4.0 10^3/uL Monocytes # (Auto) 0.5 0.0-1.0 10^3/uL Eosinophils # (Auto) 0.2 0.0-0.3 10^3/uL Basophils # (Auto) 0.0 0.0-0.1 10^3/uL Immature Granulocyte # (Auto) 0.0 0.0-0.1 10^3/uL Carboxyhemoglobin 12.5 H 9.5 H 0.5-2.5 % Sodium Level 141 135-145 MMOL/L Potassium Level 3.9 3.6-5.0 MMOL/L Chloride Level 105 98-107 MMOL/L Carbon Dioxide Level 22 21-32 MMOL/L Anion Gap 14 5-14 MMOL/L Blood Urea Nitrogen 10 7-18 MG/DL Creatinine 1.00 0.60-1.30 MG/DL Estimat Glomerular Filtration Rate 100 BUN/Creatinine Ratio 10 Glucose Level 92 70-105 MG/DL Lactic Acid Level 0.88 0.50-2.00 MMOL/L Calcium Level 8.9 8.5-10.1 MG/DL Corrected Calcium 8.7 8.5-10.1 MG/DL Total Bilirubin 0.8 0.1-1.0 MG/DL Aspartate Amino Transf (AST/SGOT) 24 5-34 U/L Alanine Aminotransferase (ALT/SGPT) 27 0-55 U/L Alkaline Phosphatase 52 40-136 U/L Troponin I 0.080 H < 0.028 <0.028 NG/ML Total Protein 7.0 6.4-8.2 GM/DL Albumin 4.3 3.2-4.5 GM/DL Blood Gas Puncture Site RIGHT RADIAL R RAD Blood Gas Patient Temperature 36.2 36.2 Arterial Blood pH 7.35 L 7.40 7.37-7.43 Arterial Blood Partial Pressure CO2 50 H 42 35-45 MMHG Arterial Blood Partial Pressure O2 30 *L 307 H 79-93 MMHG Arterial Blood HCO3 27 26 23-27 MMOL/L Arterial Blood Total CO2 28.8 27.2 21.0-31.0 MMOL/L Arterial Blood Oxygen Saturation 65 L 100 94-100 % Arterial Blood Base Excess 2.0 1.4 -2.5-2.5 MMOL/L Alec Test NA YES-POS Blood Gas Ventilator Setting NA NO Blood Gas Inspired Oxygen UNK 15L My Orders Orders - JOHN CORREA [employer] ENGINEER Cbc With Automated Diff (10/11/22 18:29) Ekg Tracing (10/11/22 18:29) Comprehensive Metabolic Panel (10/11/22 18:29) O2 (10/11/22 18:29) Monitor-Rhythm Ecg Trace Only (10/11/22 18:29) Ed Iv/Invasive Line Start (10/11/22 18:29) Troponin I [place] (10/11/22 18:29) Arterial Blood Gas (10/11/22 18:29) Carboxyhemoglobin (10/11/22 18:29) Lactic Acid Analyzer (10/11/22 18:39) Carboxyhemoglobin (10/11/22 21:16) Arterial Blood Gas (10/11/22 21:43) Troponin I [place] (10/11/22 22:02) Vital Signs/I&O 10/11/22 10/11/22 10/11/22 18:30 18:35 18:40 Pulse 71 Resp 18 B/P (MAP) 149/94 (112) Pulse Ox 99 100 O2 Delivery OxyMask OxyMask O2 Flow Rate 10.00 10.00 Capillary Refill : Less Than 3 Seconds Blood Pressure Mean: 112 Progress Note #1: Time: 18:51 Progress Note Patient seen and evaluated, resting on bed, no acute distress. Speech is slow, but he is alert and oriented. Based on exam and symptoms, concern for CO poisoning. Work-up initiated including CBC, CMP, troponin, EKG, ABG, carboxyhemoglobin, lactic acid. Progress Note #2: Time: 19:25 Progress Note Labs reviewed. CBC grossly negative, WBC 7.8, hemoglobin 15.3, hematocrit 47. Progress Note #3: Time: 21:23 Progress Note Patient reevaluated, states he is feeling better, almost back to baseline. Will redraw his ABG and carboxyhemoglobin. Progress Note #4: Time: 22:02 Progress Note First troponin elevated at 0.80, repeat troponin ordered. Departure Impression Primary Impression: Carbon monoxide exposure Disposition: HOME, SELF-CARE Condition: Stable Departure-Patient Inst. Decision time for Depature: 22:38 Referrals: NO,LOCAL PHYSICIAN (PCP/Family) Primary Care Physician Patient Instructions: Carbon Monoxide Poisoning (DC) Add. Discharge Instructions: Return if symptoms return, severe headache, chest pain, shortness of air, or any other new, concerning, or worsening symptoms. Follow-up with your primary care provider. All discharge instructions reviewed with patient and/or family. Voiced understanding. Work/School Note: Work Release Form Date Seen in the Emergency Department: Oct 11, 2022 Return to Work: Oct 13, 2022 Restrictions: No Restrictions JOHN CORREA APRN Oct 11, 2022 18:52
[2022-10-11 19:04] LABS: ALBUMIN 4.3 GM/DL (3.2-4.5); POTASSIUM 3.9 MMOL/L (3.6-5.0)
[2022-10-11 19:05] LABS: CALCIUM 8.9 MG/DL (8.5-10.1)
[2022-10-11 19:08] LABS: BILIRUBIN,TOTAL 0.8 MG/DL (0.1-1.0)
[2022-10-11 19:14] LABS: ABG OXYGEN SATURATION 65 % (94-100); ABG PCO2 50 MMHG (35-45); ABG PH 7.35 (7.37-7.43); ABG TCO2 28.8 MMOL/L (21.0-31.0)
[2022-10-11 19:19] LABS: ABG PO2 30 MMHG (79-93); PATIENT TEMP 36.2
[2022-10-11 21:47] LABS: ABG BASE EXCESS 1.4 MMOL/L (-2.5-2.5); ABG OXYGEN SATURATION 100 % (94-100); ABG PCO2 42 MMHG (35-45); ABG PO2 307 MMHG (79-93); ABG TCO2 27.2 MMOL/L (21.0-31.0)
[2022-10-11 21:48] LABS: ALLENS TEST YES-POS; INSPIRED O2 15L; PATIENT TEMP 36.2; VENTILATOR NO
[2022-10-11 22:50] VITALS: BP 122/81
== END 2022-10-11 22:50 | disposition home or self-care (01) ==
LOC: EDUNIT# 18:23 → ER 18:25
DX: Z57.5 Occupational exposure to toxic agents in other industries (principal); I48.91 Unspecified atrial fibrillation; Z79.899 Other long term (current) drug therapy
CPT/HCPCS: 36415; 80053; 82375; 82805; 83605; 84484; 85025; 93005; 93041; 99291

== ENCOUNTER → 2023-01-01 | Outpatient (CLI) | payer OTHER, MEDICAID | LOC: CARD 08:03 | PROVIDERS: ATTEND Internal Medicine Cardiovascular Disease | DX: I27.20 Pulmonary hypertension, unspecified (principal) | CPT/HCPCS: 93306 ==